=== PATIENT | male | born 1990 | race African-American/Black ===

== ENCOUNTER 2019-05-16 20:55 | Emergency (ER) | payer SELFPAY ==
[2019-05-16 21:25] VITALS: BP 172/105
== END 2019-05-16 22:35 | disposition home or self-care (01) ==
LOC: ER 20:55
DX: Z04.89 Encounter for examination and observation for other specified reasons (principal); R03.0 Elevated blood-pressure reading, without diagnosis of hypertension; Z98.890 Other specified postprocedural states
CPT/HCPCS: 99281